=== PATIENT | male | born 1995 | race American Indian/Alaskan Native ===

== ENCOUNTER 2016-06-30 02:15 | Emergency (ER) | payer OTHER ==
--- NOTE | 2016-06-30 07:11 | Emergency Department Report ---
ED Laceration HPI - HPI Chief Complaint: Wound/Laceration Stated Complaint: LEFT FINGER LACERATION Time Seen by Provider: 06/30/16 06:14 Occurred When: Today Location: Upper Extremity Severity: mild Laceration Symptoms: Yes Pain, No Foreign Body Sensation, No Numbness, No Weakness Other History: 21-year-old -[place] male comes in for a left middle finger laceration that happened while cutting food at work. 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 He reports is not up-to-date on his tetanus. He was sent here by his employer. ED Review of Systems ROS: Stated complaint: LEFT FINGER LACERATION Other details as noted in HPI Constitutional: denies: chills, fever Eyes: denies: eye pain, eye discharge, vision change ENT: denies: ear pain, throat pain Respiratory: denies: cough, shortness of breath, wheezing Cardiovascular: denies: chest pain, palpitations Endocrine: no symptoms reported Gastrointestinal: denies: abdominal pain, nausea, diarrhea Genitourinary: denies: urgency, dysuria Musculoskeletal: denies: back pain, joint swelling, arthralgia Skin: other (laceration to middle ) ED Past Medical Hx - Past Medical History Previous Medical History?: No - Surgical History Past Surgical History?: No - Social History Smoking Status: Current Every Day Smoker Substance Use Type: Alcohol Laceration Physical Exam - Exam General: Vital signs noted. No distress. Alert and acting appropriately. Wound Length (cm): 1 Laceration Location: Upper Extremity (left middle finger) Laceration Exam: Yes Normal Distal CMS, No Foreign Body, No Exposed Tendon, Vessel, or Nerve, No Tendon Injury ED Course Vital Signs 06/30/16 02:25 Temperature 97.5 F L Pulse Rate 68 Respiratory 18 Rate Blood Pressure 144/83 [Right] O2 Sat by Pulse 97 Oximetry - Laceration /Wound Repair Left Finger Wound Location: upper extremity Irrigated w/ Saline (ccs): 45 Betadine Prep?: Yes Wound Debrided: minimal Wound Repaired With: Dermabond Layer Closure?: No Progress: Patient tolerated procedure well. ED Medical Decision Making - Medical Decision Making He is evaluated by this provider faster. Discussed the patient that we will be able to close his laceration with a Dermabond adhesive solution. Patient verbalized understanding Critical care attestation.: If time is entered above; I have spent that time in minutes in the direct care of this critically ill patient, excluding procedure time. ED Disposition Clinical Impression: Laceration of finger Qualifiers: Encounter type: initial encounter Qualified Code(s): S61.219A - Laceration without foreign body of unspecified finger without damage to nail, initial encounter Disposition: DISCHARGED TO HOME OR SELFCARE Is pt being admited?: No Does the pt Need Aspirin: No Condition: Stable Instructions: Absorbable Suture Care (ED) Additional Instructions: Please keep wound nice and dry. Follow-up emergency room if fever becomes infected such as swelling redness fever and the finger purulent discharge. Referrals: [facility] [Provider Group] - 3-5 Days Forms: Work/School Release Form(ED)
[2016-06-30] MEDS: BOOSTRIX IM ONE (07:25)
[2016-06-30 07:33] VITALS: BP 121/78
== END 2016-06-30 07:33 | disposition home or self-care (01) ==
LOC: ED 02:15
DX: S61.213A Laceration without foreign body of left middle finger without damage to nail, initial encounter (principal); F17.200 Nicotine dependence, unspecified, uncomplicated; W45.8XXA Other foreign body or object entering through skin, initial encounter; Y93.9 Activity, unspecified; Y92.9 Unspecified place or not applicable; Y99.9 Unspecified external cause status
CPT/HCPCS: 90471; 90715; 99282